=== PATIENT | female | born 1955 | race Caucasian/White ===

== ENCOUNTER 2016-05-10 20:26 | Emergency (ER) | payer BC, OTHER ==
[2016-05-10 20:42] VITALS: BP 98/64
--- NOTE | 2016-05-10 21:04 | UC ---
Throat Pain/Nasal Raymond HPI - HPI Summary HPI Summary: complaint of nasal congestion cough,ear pain that started approx 1 week ago headaches denies sore throat fever of 101.7 today yesterday vomited 2x,diarrhea yesterday that resolved denies abdominal pain, dysuria, shortness of breath took some tylenol approx 1 hour ago with relief of headache - History of Current Complaint Chief Complaint: UCRespiratory Stated Complaint: CHEST CONGESTION Time Seen by Provider: 05/10/16 20:58 Hx Obtained From: Patient, Family/Welder Repair Cough: Nonproductive - Allergies/Home Medications Allergies/Adverse Reactions: Allergies Allergy/AdvReac Type Severity Reaction Status Date / Time Sulfa Drugs Allergy Severe Anaphylatic Verified 05/10/16 20:41 Shock PMH/Surg Hx/FS Hx/Imm Hx Previously Healthy: Yes Endocrine History Of: Denies: Diabetes Cardiovascular History Of: Denies: Hypertension, Pacemaker/ICD Respiratory History Of: Denies: Asthma GI/ History Of: Denies: Renal Disease Psychological History Of: Reports: Anxiety, Depression - not treated - Surgical History Surgical History: Yes Surgery Procedure, Year, and Place: tubal ligation - Family History Known Family History: Positive: Other - Son - brain [place], Daughter -MS Negative: Cardiac Disease, Hypertension, Diabetes - Social History Occupation: Disabled Lives: With Family Alcohol Use: None Substance Use Type: None Smoking Status (MU): Current Every Day Smoker Type: Cigarettes Amount Used/How Often: 1 1/2 PPD Length of Time of Smoking/Using Tobacco: 41 years Have You Smoked in the Last Year: Yes Household Exposure Type: Cigarettes Cessation Counseling: Patient Advised to Stop Review of Systems Constitutional: Fever Skin: Negative Eyes: Negative ENT: Nasal Discharge Respiratory: Cough Cardiovascular: Negative Gastrointestinal: Vomiting, Diarrhea Genitourinary: Negative Motor: Negative Neurovascular: Negative Musculoskeletal: Negative Neurological: Negative Psychological: Negative All Other Systems Reviewed And Are Negative: Yes Physical Exam Triage Information Reviewed: Yes Appearance: Ill-Appearing Vital Signs: Initial Vital Signs Temp 100.2 F 05/10/16 20:37 Pulse 90 05/10/16 20:37 Resp 16 05/10/16 20:37 BP 98/64 05/10/16 20:37 Pulse Ox 98 05/10/16 20:37 Vital Signs Reviewed: Yes Eyes: Positive: Conjunctiva Clear ENT: Positive: Pharynx normal, Nasal congestion, TMs normal Respiratory: Positive: Lungs clear, Normal breath sounds, No respiratory distress Cardiovascular: Positive: RRR, No Murmur, Pulses Normal Abdomen Description: Positive: Nontender, No Organomegaly, Soft. Negative: CVA Tenderness (R), CVA Tenderness (L), Distended, Guarding Bowel Sounds: Positive: Hyperactive Musculoskeletal: Positive: No Edema Neurological: Positive: Alert Psychological Exam: Normal Skin Exam: Normal Throat Pain/Nasal Course/Dx - Course Course Of Treatment: exam completed. gastroenteritis- will treat with zofran increase fluids and followup with pcp - Differential Dx/Diagnosis Differential Diagnosis/HQI/PQRI: Other - gastroenteritis, influenza Provider Diagnoses: gastroenteritis Discharge - Discharge Plan Condition: Stable Disposition: LEFT WITHOUT BEING SEEN Prescriptions: Ondansetron ODT TAB* [Zofran Odt TAB*] 4 mg PO Q6H PRN #10 tab.odt PRN Reason: Nausea/Vomiting Referrals: David Fisher MD [Primary Care Provider] - Additional Instructions: start taking zofran increase your fluids and rest take tylenol for fever or discomfort please review your discharge instruction and see your primary care physician GASTROENTERITIS What is Gastroenteritis? Gastroenteritis is an inflammation of the stomach and bowel that is often called the stomach "flu.'' It should only last 1 or 2 days. You usually get gastroenteritis because you've been in contact with someone who's already infected or because you've eaten contaminated food, or drank contaminated water. Many different viruses can cause intestinal problems but the signs and symptoms are usually the same: watery diarrhea, abdominal cramps, and nausea or vomiting. Symptoms Might Include: Abdominal cramps Diarrhea Nausea Vomiting Blood or mucus in stools Muscle aches Headaches Fever Extreme exhaustion Treatment Recommendations: Decrease activity until you feel better or the diarrhea and vomiting are gone. Take clear liquids, such as jay syed, cola, water, tea, broth, and gelatin, for the first 24 hours or until the diarrhea and vomiting stops. During the next 24 hours you may eat bland foods like cooked cereals, rice, soup, bread, crackers, baked potatoes, eggs, or applesauce. Do not eat fruits, vegetables, fried or spicy foods, bran, candy, dairy products (such as milk or ice cream), apple juice, or alcoholic beverages. You may go back to your normal diet after 2 to 3 days. Drink 8 to 12 glasses of liquid a day. Most of the problems with gastroenteritis are caused by loss of water through vomiting and diarrhea. You may take ibuprofen (Motrin, Advil) or acetaminophen (Tylenol) for fever and muscle aches. Call Your Doctor or Return Here IF: Your symptoms last for more than 3 days. You have severe pain in the abdomen (area around the stomach) or rectum. You have a high temperature. You find blood, mucus, or worms in your stool. You have signs of dehydration (water loss), including dry mouth, excessive thirst, crinkled skin, little or no urination, dizziness, or light-headedness. You have any other new symptoms that worry you.
[2016-05-10] MEDS ORDERED: Ondansetron ODT TAB* 4 MG PO ONE (21:49)
== END 2016-05-10 22:03 | disposition left against medical advice (07) ==
LOC: UCEAST 20:26
DX: K52.9 Noninfective gastroenteritis and colitis, unspecified (principal); Z88.2 Allergy status to sulfonamides; F17.210 Nicotine dependence, cigarettes, uncomplicated
CPT/HCPCS: 99212; A9270-GY; G0463

== ENCOUNTER 2016-05-26 16:28 | Emergency (ER) | payer BC, OTHER ==
--- NOTE | 2016-05-26 17:08 | UC ---
Skin Complaint HPI - HPI Summary HPI Summary: Patient has a few red insect bites on side and stomach. daughter has bed bugs. - History of Current Complaint Chief Complaint: UCRash Time Seen by Provider: 05/26/16 17:03 Stated Complaint: RASH Hx Obtained From: Patient ?: No Onset/Duration: Sudden Onset, Lasting Days Skin Exposure Onset/Duration: Days Ago Timing: Constant Onset Severity: Mild Current Severity: Mild Pain Intensity: 2 Pain Scale Used: 0-10 Numeric Location: Discrete Character: Pruritus, Raised Aggravating: Nothing Alleviating: Nothing Associated Signs & Symptoms: Positive: Negative - Allergy/Home Medications Allergies/Adverse Reactions: Allergies Allergy/AdvReac Type Severity Reaction Status Date / Time Sulfa Drugs Allergy Severe Anaphylatic Verified 05/26/16 16:54 Shock Home Medications: Home Medications diPHENhydraMINE PO* [Benadryl PO*] 50 mg PO PRN 05/26/16 [History] Review of Systems Constitutional: Negative Skin: Rash Eyes: Negative ENT: Negative Respiratory: Negative Cardiovascular: Negative Gastrointestinal: Negative Genitourinary: Negative Motor: Negative Neurovascular: Negative Musculoskeletal: Negative Neurological: Negative Psychological: Negative All Other Systems Reviewed And Are Negative: Yes PMH/Surg Hx/FS Hx/Imm Hx Previously Healthy: Yes Endocrine History Of: Denies: Diabetes Cardiovascular History Of: Denies: Hypertension, Pacemaker/ICD Respiratory History Of: Denies: Asthma GI/ History Of: Denies: Renal Disease Psychological History Of: Reports: Anxiety, Depression - not treated - Surgical History Surgical History: Yes Surgery Procedure, Year, and Place: tubal ligation - Family History Known Family History: Positive: Other - Son - brain [place], Daughter -MS Negative: Cardiac Disease, Hypertension, Diabetes - Social History Alcohol Use: None Substance Use Type: None Smoking Status (MU): Current Every Day Smoker Type: Cigarettes Amount Used/How Often: 1 1/2 PPD Length of Time of Smoking/Using Tobacco: 41 years Have You Smoked in the Last Year: Yes Household Exposure Type: Cigarettes Physical Exam Triage Information Reviewed: Yes Appearance: No Pain Distress, Well-Nourished, Ill-Appearing Vital Signs: Initial Vital Signs Temp 99.2 F 05/26/16 16:51 Pulse 77 05/26/16 16:51 Resp 16 05/26/16 16:51 BP 112/68 05/26/16 16:51 Pulse Ox 100 05/26/16 16:51 Vital Signs Reviewed: Yes Eye Exam: Normal Eyes: Positive: Conjunctiva Clear ENT Exam: Normal ENT: Positive: Normal ENT inspection, Pharynx normal, TMs normal Dental Exam: Normal Neck exam: Normal Neck: Positive: Supple, Nontender, No Lymphadenopathy Respiratory Exam: Normal Respiratory: Positive: Chest non-tender, Lungs clear, Normal breath sounds Cardiovascular Exam: Normal Cardiovascular: Positive: RRR, No Murmur, Pulses Normal Abdominal Exam: Normal Abdomen Description: Positive: Nontender, No Organomegaly, Soft Bowel Sounds: Positive: Present Musculoskeletal Exam: Normal Musculoskeletal: Positive: Strength Intact, ROM Intact, No Edema Neurological Exam: Normal Neurological: Positive: Alert, Muscle Tone Normal Psychological Exam: Normal Skin: Positive: significant lesion(s) - multiple bug bites with scabs, on trunk Course/Dx - Course Course Of Treatment: history obtained, exam performed, hydrocortisone given for pruritis, patients family has bed bugs and she has been doing her laundry there - Differential Diagnoses - Skin Complaint Differential Diagnoses: Contact Dermatitis, Drug Rash, Scabies, Urticaria - Diagnoses Provider Diagnoses: bug bites Discharge - Discharge Plan Condition: Stable Disposition: HOME Patient Education Materials: Acute Rash (ED) Additional Instructions: Your rash appears to be bites of somekind. Watch for more to appear, you may need to watch for bedbugs being your daughter has them and you do your laundry there. Follow up with any worsening symptoms.
[2016-05-26 17:34] VITALS: BP 112/68
== END 2016-05-26 17:22 | disposition home or self-care (01) ==
LOC: UCEAST 16:28
DX: S30.861A Insect bite (nonvenomous) of abdominal wall, initial encounter (principal); W57.XXXA Bitten or stung by nonvenomous insect and other nonvenomous arthropods, initial encounter; Y93.9 Activity, unspecified; Y92.9 Unspecified place or not applicable; Z88.2 Allergy status to sulfonamides; F17.210 Nicotine dependence, cigarettes, uncomplicated
CPT/HCPCS: 99212; G0463

== ENCOUNTER 2016-11-07 13:05 | Emergency (ER) | payer BC, OTHER ==
[2016-11-07 13:29] VITALS: BP 104/68
--- NOTE | 2016-11-07 14:35 | UC ---
Skin Complaint HPI - HPI Summary HPI Summary: BITTEN BY A BUG ON CHEST YESTERDAY, ITCHY RASH DEVELOPED. NO TICK. NO FEVER. NO JOINT ACHES. - History of Current Complaint Chief Complaint: UCSkin Time Seen by Provider: 11/07/16 13:50 Stated Complaint: BUG BITE W/ RASH Hx Obtained From: Patient Onset/Duration: Sudden Onset, Lasting Hours, Still Present Skin Exposure Onset/Duration: Hours Ago Onset Severity: Mild Current Severity: Mild Pain Intensity: 0 Pain Scale Used: Adult Non Verbal Location: Discrete Character: Pruritus, Redness Aggravating: Nothing Alleviating: Nothing Associated Signs & Symptoms: Positive: Rash. Negative: Fever, Chills, Tenderness, Red Streaks Related History: Insect Bite/Sting, Possible Reaction to: Insect - Allergy/Home Medications Allergies/Adverse Reactions: Allergies Allergy/AdvReac Type Severity Reaction Status Date / Time Sulfa Drugs Allergy Severe Anaphylatic Verified 11/07/16 13:29 Shock Review of Systems Constitutional: Negative Skin: Rash Eyes: Negative ENT: Negative Respiratory: Negative Cardiovascular: Negative Gastrointestinal: Negative Genitourinary: Negative Motor: Negative Neurovascular: Negative Musculoskeletal: Negative Neurological: Negative Psychological: Negative All Other Systems Reviewed And Are Negative: Yes PMH/Surg Hx/FS Hx/Imm Hx Previously Healthy: Yes - Surgical History Surgical History: Yes Surgery Procedure, Year, and Place: tubal ligation - Family History Known Family History: Positive: Other - Son - brain [place], Daughter -MS Negative: Cardiac Disease, Hypertension, Diabetes - Social History Lives: With Family Alcohol Use: None Substance Use Type: None Smoking Status (MU): Current Every Day Smoker Type: Cigarettes Amount Used/How Often: 1 1/2 PPD Length of Time of Smoking/Using Tobacco: 41 years Have You Smoked in the Last Year: Yes Household Exposure Type: Cigarettes Physical Exam Triage Information Reviewed: Yes Appearance: Well-Appearing, No Pain Distress, Well-Nourished Vital Signs: Initial Vital Signs Temp 98.5 F 11/07/16 13:24 Pulse 72 11/07/16 13:24 Resp 14 11/07/16 13:24 BP 104/68 11/07/16 13:24 Pulse Ox 98 11/07/16 13:24 Vital Signs Reviewed: Yes Eye Exam: Normal Eyes: Positive: Conjunctiva Clear ENT Exam: Normal ENT: Positive: Normal ENT inspection, Hearing grossly normal Dental Exam: Normal Neck exam: Normal Neck: Positive: Supple, Nontender Respiratory Exam: Normal Respiratory: Positive: Chest non-tender, Lungs clear, Normal breath sounds, No respiratory distress Cardiovascular Exam: Normal Cardiovascular: Positive: RRR, No Murmur Abdominal Exam: Normal Musculoskeletal Exam: Normal Musculoskeletal: Positive: Strength Intact Neurological Exam: Normal Psychological Exam: Normal Skin: Positive: rashes Course/Dx - Differential Diagnoses - Skin Complaint Differential Diagnoses: Cellulitis, Local Allergic Reaction, Poison [place], Poison [place], Scabies, Tinea, Urticaria - Diagnoses Provider Diagnoses: ANTERIOR CHEST INSECT BITE/STING; LOCAL ALLERGIC REACTION Discharge - Discharge Plan Condition: Stable Disposition: HOME Prescriptions: Triamcinolone 0.1% Oint (NF) [Triamcinolone Acetonide] 0.1 % TOPICAL TID #1 oin Patient Education Materials: Insect Bite or Sting (ED), Contact Dermatitis (ED) Referrals: David Fisher MD [Primary Care Provider] - Images Front/Back of Body, Lg ([place]): 1 - MILDLY ERRYTHEMATOUS EXCORIATED RASH 2CM X 1CM
== END 2016-11-07 14:05 | disposition home or self-care (01) ==
LOC: UCEAST 13:05
DX: S20.369A Insect bite (nonvenomous) of unspecified front wall of thorax, initial encounter (principal); W57.XXXA Bitten or stung by nonvenomous insect and other nonvenomous arthropods, initial encounter; Y93.9 Activity, unspecified; Y92.9 Unspecified place or not applicable; Y99.9 Unspecified external cause status; T78.49XA Other allergy, initial encounter; Z72.0 Tobacco use
CPT/HCPCS: 99212; G0463

== ENCOUNTER 2017-08-25 18:43 | Emergency (ER) | payer BC, OTHER ==
[2017-08-25 19:25] VITALS: BP 128/88
== END 2017-08-25 20:00 | disposition left against medical advice (07) ==
LOC: UCEAST 18:43
DX: K52.9 Noninfective gastroenteritis and colitis, unspecified (principal); R21 Rash and other nonspecific skin eruption; Z53.21 Procedure and treatment not carried out due to patient leaving prior to being seen by health care provider
CPT/HCPCS: 99212; G0463

== ENCOUNTER 2019-05-30 12:36 | Emergency (ER) | payer BC, OTHER ==
[2019-05-30 13:35] VITALS: BP 117/59
--- NOTE | 2019-05-30 14:44 | UC ---
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 Negative: Diaphoresis, Fever, Cough, Chest Pain, Dizzy, Back Pain, Blood in Stool, Urinary Symptoms, Decreased Appetite, Vaginal Bleeding, Vaginal Discharge, Nausea, Vomiting, Diarrhea Allergies/Adverse Reactions: Allergies Allergy/AdvReac Type Severity Reaction Status Date / Time Sulfa (Sulfonamide Allergy Anaphylatic Verified 05/30/19 13:35 Antibiotics) Shock PMH/Surg Hx/FS Hx/Imm Hx Previously Healthy: Yes - Surgical History Surgical History: Yes Surgery Procedure, Year, and Place: tubal ligation - Family History Known Family History: Positive: Other - Son - brain [place], Daughter -MS Negative: Cardiac Disease, Hypertension, Diabetes - Social History Alcohol Use: None Substance Use Type: None Smoking Status (MU): Heavy Every Day Tobacco Smoker Type: Cigarettes Amount Used/How Often: 1 1/2 PPD Length of Time of Smoking/Using Tobacco: 41 years Have You Smoked in the Last Year: Yes Household Exposure Type: Cigarettes Cessation Counseling: Patient Advised to Stop Review of Systems All Other Systems Reviewed And Are Negative: Yes Constitutional: Positive: Negative Skin: Positive: Rash, Other - generalized pruritis Eyes: Positive: Negative ENT: Positive: Negative Respiratory: Positive: Negative Cardiovascular: Positive: Negative Gastrointestinal: Positive: Other - rectal pain and constipation Genitourinary: Positive: Negative Motor: Positive: Negative Neurovascular: Positive: Negative Musculoskeletal: Positive: Negative Neurological: Positive: Negative Psychological: Positive: Negative Physical Exam Triage Information Reviewed: Yes Appearance: Well-Appearing, No Pain Distress, Well-Nourished Vital Signs: Initial Vital Signs Temp 98.7 F 05/30/19 13:31 Pulse 95 05/30/19 13:31 Resp 16 01/21/20 13:31 BP 117/59 05/30/19 13:31 Pulse Ox 97 05/30/19 13:31 Vital Signs Reviewed: Yes Eyes: Positive: Conjunctiva Clear ENT: Positive: Hearing grossly normal. Negative: Nasal congestion, Nasal drainage, Trismus, Muffled voice, Hoarse voice Neck: Positive: Supple, Nontender, No Lymphadenopathy Respiratory: Positive: Lungs clear, Normal breath sounds, No respiratory distress, No accessory muscle use Cardiovascular: Positive: RRR, No Murmur Abdomen Description: Positive: Nontender, No Organomegaly, Soft, Other: - rectal - non-thrombosed hemorrhoids soft stool in vault. Negative: CVA Tenderness (R) , CVA Tenderness (L), Distended, Guarding Bowel Sounds: Positive: Present Musculoskeletal: Positive: ROM Intact, No Edema Neurological: Positive: Alert Psychological Exam: Normal Skin Exam: Normal Diagnostics - Laboratory Lab Results: stool - guaiac (-) Abd Pain Female Course/Dx - Differential Dx/Diagnosis Provider Diagnosis: Constipation, Hemorrhoids, Smoker, Dry skin dermatitis Discharge ED - Sign-Out/Discharge Documenting (check all that apply): Patient Departure All imaging exams completed and their final reports reviewed: No Studies - Discharge Plan Condition: Stable Disposition: HOME Prescriptions: Hydrocortisone SUPP* [Anusol HC Supp*] 25 mg TX BID #14 supp Patient Education Materials: Constipation (ED), Hemorrhoids (ED) Referrals: David Fisher MD [Primary Care Provider] - As Soon As Possible Additional Instructions: I suggest the following Milk of magnesia OTC) 30 cc (2 tablespoons every 6-8 hours x 3 doses) If that does not work try a fleets enema colace (OTC) take one at bedtime x 2 weeks anusol HC suppositories twice daily tucks medicated pad (for hemorrhoids) For your skin SARNA anti itch cream (OTC) You need to see your primary and get scheduled for a colonoscopy you need to stop smoking - Billing Disposition and Condition Condition: STABLE Disposition: Home
== END 2019-05-30 15:10 | disposition home or self-care (01) ==
LOC: UCEAST 12:36
DX: L85.3 Xerosis cutis (principal); K59.00 Constipation, unspecified; K64.9 Unspecified hemorrhoids; Z88.2 Allergy status to sulfonamides; F17.210 Nicotine dependence, cigarettes, uncomplicated
CPT/HCPCS: 82272; 99212; G0463

== ENCOUNTER 2019-06-12 20:49 | Emergency (ER) | payer BC ==
[2019-06-12 21:47] VITALS: BP 126/76
--- NOTE | 2019-06-12 22:23 | UC ---
Lower Extremity/Ankle HPI - HPI Summary HPI Summary: 63 yo woman comes accompanied by her , with about a 1 year hx of heavy uncomfortable legs at night, preventing sleep. She has not discussed this with Dr. Fisher, her PMD, whom she saw last week for dry skin. She has not tried analgesics or really any measures aside from occasional aspirin. She is concerned about her frequent thirst. She is a heavy smoker and looks chronically unwell, but says that she has no diagnoses. She would like to sleep better at night. She has chronic low back pain without a hx of injury. Last [facility] lab work was in 2016: normal blood count and chemistries. - History of Current Complaint Chief Complaint: UCLowerExtremity Stated Complaint: LEG PAIN Time Seen by Provider: 06/12/19 22:13 Hx Obtained From: Patient, Family/Stock Sorter - here with her . 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 Alleviating Factor(s): Nothing Able to Bear Weight: Yes - Risk Factors Gout Risk Factors: Age Over 40 DVT Risk Factors: Smoking Septic Arthritis Risk Factor: Negative - Allergies/Home Medications Allergies/Adverse Reactions: Allergies Allergy/AdvReac Type Severity Reaction Status Date / Time Sulfa (Sulfonamide Allergy Anaphylatic Verified 06/12/19 21:47 Antibiotics) Shock Home Medications: Home Medications NK [No Home Medications Reported] 06/12/19 [History Confirmed 06/12/19] PMH/Surg Hx/FS Hx/Imm Hx - Additional Past Medical History Additional PMH: chronic smoking Previously Healthy: Yes - Surgical History Surgical History: Yes Surgery Procedure, Year, and Place: tubal ligation - Family History Known Family History: Positive: Other - Son - brain [place], Daughter -MS Negative: Cardiac Disease, Hypertension, Diabetes - Social History Lives: With Family Alcohol Use: Occasionally Substance Use Type: None Smoking Status (MU): Current Every Day Smoker Type: Cigarettes Amount Used/How Often: 1 PPD Length of Time of Smoking/Using Tobacco: 41 years Have You Smoked in the Last Year: Yes Household Exposure Type: Cigarettes Review of Systems All Other Systems Reviewed And Are Negative: Yes Constitutional: Positive: Fatigue Skin: Positive: Negative Eyes: Positive: Negative ENT: Positive: Negative Respiratory: Positive: Negative, Other - chronic smoking. Cardiovascular: Positive: Negative Gastrointestinal: Positive: Negative Genitourinary: Positive: Negative Motor: Positive: Negative Neurovascular: Positive: Decreased Sensation - reported but not observed. Musculoskeletal: Positive: Myalgia - leg pain can be proximal or distal, bilateral, maybe right > left. Neurological: Positive: Headache - on occasion, Paresthesia Psychological: Positive: Negative Is Patient Immunocompromised?: No Physical Exam Triage Information Reviewed: Yes Appearance: Ill-Appearing - looks chornically unwell and older than age. Thin, kyphotic chest wall., Thin Vital Signs: Initial Vital Signs Temp 97.3 F 06/12/19 21:41 Pulse 79 06/12/19 21:41 Resp 16 06/12/19 21:41 BP 126/76 06/12/19 21:41 Pulse Ox 99 06/12/19 21:41 Eye Exam: Normal Eyes: Positive: Conjunctiva Clear ENT: Positive: Pharynx normal Neck: Positive: Supple, Nontender, No Lymphadenopathy Respiratory: Positive: Normal breath sounds, No respiratory distress, Decreased breath sounds Cardiovascular: Positive: RRR, No Murmur Abdomen Description: Positive: No Organomegaly, Soft, Other: - mild left sided pain reported with palpation: no guarding, mass or rebound tenderness. Bowel Sounds: Positive: Present Musculoskeletal Exam: Other Musculoskeletal: Positive: Strength Intact, ROM Intact - lumbar spine with full rom, but no spinal tenderness. normal rom hips and knees and ankles. Normal resisted strength in feet, hip flexors a little weak. Normal SLR. Neurological Exam: Other - negative romberg, gait normal. Neurological: Positive: Alert, Muscle Tone Normal, Other: - DTR's symmetrical and normal. Normal light touch. Psychological Exam: Normal Skin Exam: Normal Lower Extremity Course/Dx - Course Course Of Treatment: Suspect restless leg syndrome. Clinically she looks unwell, looks older than her age, and needs more evaluation. Findings suggest that she might be osteoporotic, but rom in joints is overall ok. Discussed that this could be RLS, which is beyond scope of tx in CC setting, but that we can initiate labs to look for causes of paresthesias. Normal blood glucose tonight. - Differential Dx/Diagnosis Differential Diagnosis/HQI/PQRI: Other - degnerative arthriris, restless leg syndrome. Provider Diagnosis: Paresthesia of bilateral legs Discharge ED - Sign-Out/Discharge Documenting (check all that apply): Patient Departure All imaging exams completed and their final reports reviewed: No Studies - Discharge Plan Condition: Stable Disposition: HOME Patient Education Materials: Restless Legs Syndrome (ED) Referrals: David Fisher MD [Primary Care Provider] - Additional Instructions: Your symptoms are most suggestive or restless leg syndrome, which is a condition which is usually treated by your primary doctor or a neurologist. We have done labs to look for reasons why you might have heavy sensation in your legs. This testing includes thyroid testing, B12, blood count, iron stores and liver and kidney function. Please schedule a visit with Dr. Fisher to review the results of the testing and to discuss your overall health. - Billing Disposition and Condition Condition: STABLE Disposition: Home
[2019-06-13 10:53] LABS: ABS Eosinophils 0.2 10^3/ul (0-0.6); ABS Lymphocytes 2.3 10^3/ul (1.0-4.8); ABS Monocytes 0.5 10^3/ul (0-0.8); ABS Neutrophils 3.6 10^3/ul (1.5-7.7); Eosinophil % 2.6 %; Hematocrit 39 % (35-47); Lymphocyte % 34.1 %; Mean Corpuscular HGB Conc 34 g/dL (31-36); Mean Corpuscular Hemoglobin 30 pg (27-31); Mean Corpuscular Volume 90 fL (80-97); Mean Platelet Volume 9.9 fL (7.4-10.4); Nucleated Red Blood Cells % 0.1; Platelet Count 233 10^3/uL (150-450); Red Blood Count 4.29 10^6 /uL (3.70-4.87); Red Cell Distribution Width 14 % (10-15); White Blood Count 6.6 10^3/uL (3.5-10.8)
[2019-06-13 10:58] LABS: Albumin 4.3 g/dL (3.2-5.2); Calcium 9.3 mg/dL (8.6-10.3); Potassium 4.1 mmol/L (3.5-5.0); Total Bilirubin 0.2 mg/dL (0.2-1.0)
[2019-06-13 11:04] LABS: BUN/Creatinine Ratio 22.9 (8-20); EGFR African American 102.9 (>60); EGFR Non-African American 85.1 (>60); Globulin 2.2 g/dL (2-4); Total Protein 6.5 g/dL (6.4-8.9)
[2019-06-13 11:20] LABS: TSH (Thyroid Stimulating Horm) 1.92 mcIU/mL (0.34-5.60)
== END 2019-06-12 22:55 | disposition home or self-care (01) ==
LOC: UCEAST 20:49
DX: R20.2 Paresthesia of skin (principal); R53.83 Other fatigue; R51 Headache; M79.10 Myalgia, unspecified site; F17.210 Nicotine dependence, cigarettes, uncomplicated; M54.5 Low back pain; G89.29 Other chronic pain; Z88.2 Allergy status to sulfonamides
CPT/HCPCS: 36415; 80053; 82607; 82728; 84443; 85025; 99211; G0463

== ENCOUNTER 2019-07-17 20:02 | Emergency (ER) | payer BC ==
[2019-07-17 20:18] VITALS: BP 108/69
--- NOTE | 2019-07-17 20:30 | UC ---
Head Injury HPI - HPI Summary HPI Summary: 63yo female presenting with for headache on and off x5 days after she fell forward and hit her forehead while walking her dog. Describes headache as "all over and pounding." Denies worst headache of life. Denies LOC and vision changes. Denies difficulty ambulating. denies abnormal behavior. She does state she has a history of headaches but "this one has been worse since the fall." Denies n/v. Denies neck pain. Denies taking blood thinners. 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 Pain Intensity: 7 Pain Scale Used: 0-10 Numeric - Allergies/Home Medications Allergies/Adverse Reactions: Allergies Allergy/AdvReac Type Severity Reaction Status Date / Time Sulfa (Sulfonamide Allergy Anaphylatic Verified 07/17/19 20:17 Antibiotics) Shock Home Medications: Home Medications NK [No Home Medications Reported] 06/12/19 [History Confirmed 07/17/19] PMH/Surg Hx/FS Hx/Imm Hx - Surgical History Surgical History: Yes Surgery Procedure, Year, and Place: tubal ligation - Family History Known Family History: Positive: Other - Son - brain CA, Daughter -MS Negative: Cardiac Disease, Hypertension, Diabetes - Social History Alcohol Use: Rare Substance Use Type: None Smoking Status (MU): Current Every Day Smoker Type: Cigarettes Amount Used/How Often: 1 PPD Length of Time of Smoking/Using Tobacco: 41 years Have You Smoked in the Last Year: Yes Household Exposure Type: Cigarettes Review of Systems All Other Systems Reviewed And Are Negative: Yes Constitutional: Positive: Negative Skin: Positive: Negative Eyes: Positive: Negative Respiratory: Positive: Negative Cardiovascular: Positive: Negative Gastrointestinal: Positive: Negative Musculoskeletal: Positive: Negative Neurological/Mental Status: Positive: Headache Physical Exam Triage Information Reviewed: Yes Appearance: No Pain Distress, Other: - appear older than stated age Vital Signs: Initial Vital Signs Temp 98.6 F 07/17/19 20:12 Pulse 92 07/17/19 20:12 Resp 18 07/17/19 20:12 BP 108/69 07/17/19 20:12 Pulse Ox 98 07/17/19 20:12 Vital Signs Reviewed: Yes Eyes: Positive: Conjunctiva Clear, Other: - PERRLA, EOM intact and full ENT: Positive: Hearing grossly normal, Pharynx normal, TMs normal - no hemotympanum. Negative: Nasal drainage Neck exam: Normal Neck: Positive: Supple, Nontender, No Lymphadenopathy, Other: - no c spine TTP Respiratory Exam: Normal Respiratory: Positive: Lungs clear, Normal breath sounds, No respiratory distress, No accessory muscle use Cardiovascular Exam: Normal Cardiovascular: Positive: RRR Neurological: Positive: Alert, Muscle Tone Normal, Other: - CN II-XII intact, normal gait, negative romberg test, negative finger to nose test, negative heel to sands test Psychological: Positive: Normal Response To Family, Age Appropriate Behavior Skin: Positive: Other - mild healing ecchymosis noted of central forehead Diagnostics - Radiology CT brain Radiology Interpretation Completed By: Radiologist Summary of Radiographic Findings: IMPRESSION: No acute intracranial findings. Head Injury Course/Dx - Course Course Of Treatment: concussion - Differential Dx/Diagnosis Provider Diagnosis: Concussion Discharge ED - Sign-Out/Discharge Documenting (check all that apply): Patient Departure All imaging exams completed and their final reports reviewed: Yes - Discharge Plan Condition: Stable Disposition: HOME Patient Education Materials: Head Injury (ED), Acute Headache (ED) Referrals: David Fisher MD [Primary Care Provider] - Additional Instructions: As discussed, your CT was normal today. You may take ibuprofen and/or tylenol as directed for headache relief. Make sure your are hydrated and eating well. Follow up with your primary care provider if your headaches do not resolve. Go to the emergency room with any new or worsening symptoms. - Billing Disposition and Condition Condition: STABLE Disposition: Home
== END 2019-07-17 21:42 | disposition home or self-care (01) ==
LOC: UCEAST 20:02
DX: S06.0X0A Concussion without loss of consciousness, initial encounter (principal); W18.30XA Fall on same level, unspecified, initial encounter; Y93.K1 Activity, walking an animal; Y92.9 Unspecified place or not applicable; Z88.2 Allergy status to sulfonamides; F17.210 Nicotine dependence, cigarettes, uncomplicated
CPT/HCPCS: 70450; 99211; G0463